=== PATIENT | female | born 1970 | race Caucasian/White ===

== ENCOUNTER 2019-04-17 14:18 | Emergency (ER) | payer OTHER ==
[~2019-04-17] VITALS: Ht 157.5 cm; Wt 61.7 kg
[2019-04-17 14:22] VITALS: BP 120/79
[2019-04-17] MEDS ORDERED: NACL 0.9% 1,000 ML IV ONE (14:45)
--- NOTE | 2019-04-17 14:45 | NUR ---
PT BIB SELF C/O RAPID HEART BEAT AFTER TAKING NORCO 3 PILLS THIS MORNING.PT STATES TO HAVE TAKEN THREE NORCO BECAUSE OF PAIN DUE TO HAVING SX OF WISDOM TEETH LAST WEEK. DENIES ANY SOB, CHEST PAIN, DIZZY AT THIS TIME. VOMITTED FIVE MINUTES AGO, NO BLOODY EMESIS. HX: HYPOTHYRODISM
--- NOTE | 2019-04-17 15:13 | NUR ---
PT LAYING IN BED AWAKE, ALERT, CALM, VISITING WITH FAMILY. VSS.
[2019-04-17 15:14] LABS: BASOPHILS # (AUTO) 0.1 K/uL (0.00-0.22); BASOPHILS % (AUTO) 0.6 % (0.0-2.0); EOSINOPHILS # (AUTO) 0.1 K/uL (0-0.4); EOSINOPHILS % (AUTO) 0.7 % (0.0-4.0); HEMATOCRIT 35.1 % (36-48); HEMOGLOBIN 11.2 g/dL (12.0-16.0); LYMPHOCYTES % (AUTO) 22.8 % (20.5-51.1); MEAN CORPUSCULAR HEMOGLOBIN 24 pg (27-31); MEAN CORPUSCULAR HGB CONC 32 g/dL (33-37); MEAN CORPUSCULAR VOLUME 76.2 fL (80-94); MONOCYTES # (AUTO) 0.5 K/uL (0.8-1.0); MONOCYTES % (AUTO) 5.8 % (1.7-9.3); NEUTROPHILS # (AUTO) 6.3 K/uL (1.8-7.7); NEUTROPHILS % (AUTO) 70.1 % (42.2-75.2); PLATELET COUNT (AUTO) 318 K/uL (140-450); RED BLOOD CELL COUNT(AUTO) 4.61 MIL/uL (4.20-5.40); RED CELL DISTRIBUTION WIDTH 14.8 % (11.6-13.7)
[2019-04-17 15:21] LABS: ANION GAP 14.3 (8-16); CARBON DIOXIDE 24.9 mmol/L (21-32); CREATININE 0.8 mg/dL (0.6-1.3); POTASSIUM 3.2 mmol/L (3.5-5.1)
[2019-04-17 15:27] LABS: TOTAL BILIRUBIN 0.2 mg/dL (0.0-1.0)
[2019-04-17 15:27] LABS: APPEARANCE,URINE HAZY (CLEAR); BILIRUBIN,URINE NEGATIVE (NEGATIVE); BLOOD, URINE 3+ (NEGATIVE); COLOR,URINE YELLOW (YELLOW); LEUKOCYTE ESTERASE ,URINE NEGATIVE (NEGATIVE); NITRITE, URINE NEGATIVE (NEGATIVE); UGLUCOSE NEGATIVE (NEGATIVE)
[2019-04-17 15:33] LABS: BARBITURATE, URINE NEG. ng/ml (NEG <=200); BENZODIAZEPINE, URINE NEG. ng/mL (NEG <=200); CANNABINOID, URINE NEG. ng/mL (NEG <=50); COCAINE, URINE NEG. ng/mL (NEG <=300); OPIATE, URINE POS. ng/mL (NEG <=2000); PHENCYCLIDINE SCREEN,URINE NEG. ng/mL (NEG <=25)
[2019-04-17 15:37] LABS: ALBUMIN 3.5 g/dL (3.4-5.0)
[2019-04-17 15:40] LABS: RBC,URINE 11-20 (MOD) /HPF (0-5); WBC,URINE 0-5 /HPF (0-5)
[2019-04-17 15:42] LABS: MAGNESIUM 1.5 mg/dL (1.8-2.4); THYROID STIMULATING HORMONE 7.98 uIU/mL (0.34-3.74)
[2019-04-17] MEDS ORDERED: POTASSIUM CHLORIDE 10 MEQ TABER PO ONE (15:50)
[2019-04-17] MEDS ORDERED: MAGNESIUM OXIDE 400 MG TAB PO ONE (15:55)
--- NOTE | 2019-04-17 16:01 | NUR ---
GAVE MEDS TO PT ORDERED. CALLED PHARMACY FOR MAGNESIUM OXIDE. PT STATES FEELING BETTER. VS STABLE AT THHIS TIME. WILL CONTINUE TO MONITOR PT.
[2019-04-17 16:27] VITALS: BP 112/72
--- NOTE | 2019-04-17 16:30 | NUR ---
Patient discharged with v/s stable. Written and verbal after care instructions given and explained. Patient alert, oriented and verbalized understanding of instructions. Ambulatory with steady gait. All questions addressed prior to discharge. ID band removed. Patient advised to follow up with PMD. Rx of IBUPROFEN, ZOFRAN given. Patient educated on indication of medication including possible reaction and side effects. Opportunity to ask questions provided and answered.
== END 2019-04-17 16:30 | disposition home or self-care (01) ==
LOC: MED 14:18
DX: R00.2 Palpitations (principal); T40.2X5A Adverse effect of other opioids, initial encounter; R11.2 Nausea with vomiting, unspecified; E07.9 Disorder of thyroid, unspecified; F17.200 Nicotine dependence, unspecified, uncomplicated; Z98.890 Other specified postprocedural states; Y92.89 Other specified places as the place of occurrence of the external cause
CPT/HCPCS: 36415; 71045; 80053; 80305; 81001; 81025; 83735; 83880; 84443; 84484; 85025; 93005; 96360; 99284; G0482; Q0092; J7030

== ENCOUNTER 2019-11-25 13:32 | Emergency (ER) | payer OTHER ==
[~2019-11-25] VITALS: Ht 152.4 cm; Wt 63.0 kg
[2019-11-25 13:39] VITALS: BP 122/71
--- NOTE | 2019-11-25 14:15 | NUR ---
INFLUENZA SWAB COLLECTED
--- NOTE | 2019-11-25 15:22 | NUR ---
AMB TO BED 11
--- NOTE | 2019-11-25 15:38 | NUR ---
48 y/o F presents to ER c/o fever and bilateral ear pain. Pt was seen at urgent care 3 days ago. Pt was prescribed Azithromycin 250mg 2 tabs, Acetaminophen 500mg, Ibuprofen 600mg, and an Albuterol inhaler. Per pt she is not receiving any relief from pain. Pain level 6/10 for generalized body aches. Pt last dose of medication was Tylenol taken 2.5 hours ago. ERMD at bedside evaluating pt. Allergies: NKA Med hx: none
--- NOTE | 2019-11-25 16:02 | NUR ---
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
[2019-11-25 16:12] LABS: BASOPHILS % (AUTO) 0.5 % (0.0-2.0); EOSINOPHILS % (AUTO) 0.2 % (0.0-4.0); HEMATOCRIT 39.2 % (36-48); HEMOGLOBIN 12.3 g/dL (12.0-16.0); LYMPHOCYTES % (AUTO) 26.5 % (20.5-51.1); MEAN CORPUSCULAR HEMOGLOBIN 25 pg (27-31); MEAN CORPUSCULAR HGB CONC 32 g/dL (33-37); MEAN CORPUSCULAR VOLUME 79.9 fL (80-94); MONOCYTES # (AUTO) 0.4 K/uL (0.8-1.0); NEUTROPHILS # (AUTO) 2.2 K/uL (1.8-7.7); NEUTROPHILS % (AUTO) 60.8 % (42.2-75.2); PLATELET COUNT (AUTO) 226 K/uL (140-450); RED BLOOD CELL COUNT(AUTO) 4.91 MIL/uL (4.20-5.40); RED CELL DISTRIBUTION WIDTH 16.1 % (11.6-13.7); WHITE BLOOD COUNT (AUTO) 3.7 K/uL (4.8-10.8)
--- NOTE | 2019-11-25 17:00 | NUR ---
Pt sitting in bed on cell phone. Will continue to monitor.
--- NOTE | 2019-11-25 17:24 | NUR ---
Patient discharged with v/s stable. Written and verbal after care instructions given and explained. Patient verbalized understanding. Ambulatory with steady gait. All questions addressed prior to discharge. Advised to follow up with PMD.
[2019-11-25 17:25] VITALS: BP 122/71
== END 2019-11-25 17:24 | disposition home or self-care (01) ==
LOC: MED 13:32
DX: B34.9 Viral infection, unspecified (principal); E07.9 Disorder of thyroid, unspecified
CPT/HCPCS: 36415; 81002; 81025; 83605; 85025; 87040; 87804; 99283